=== PATIENT | male | born 1975 | race African-American/Black ===

== ENCOUNTER 2019-07-25 09:51 | Inpatient (IN) ==
[2019-07-25] MEDS ORDERED: ONDANSETRON 4 MG/2 ML VIAL IV STA (10:28)
[2019-07-25 10:56] LABS: Basophils % 0.2 % (0.0-0.8); Eosinophils % 0.1 % (0.00-10.9); Hematocrit 54.7 VOL% (42.0-52.0); Hemoglobin 19.5 GM/DL (14.0-18.0); Immature Granulocytes % 0.4 %; Immature Granulocytes Absolute 0.04 #; Lymphocytes # 1.2 10*3/uL (1.4-4.0); Lymphocytes % 10.3 % (21.2-54.2); Mean Corpuscular HGB Conc 35.6 GM/DL (32-36); Mean Corpuscular Volume 91.3 FL (87-102); Monocytes % 4.2 % (1.7-12.7); Neutrophils % 84.8 % (38.7-73.9); Platelet Count 257 T/CUMM (130-400); Red Blood Count 5.99 MC/CUMM (3.8-5.5); White Blood Count 11.1 T/CUMM (4-12)
[2019-07-25] MEDS ORDERED: SODIUM CHLORIDE 0.9% 1,000 ML IV STA (10:57)
[2019-07-25] MEDS ORDERED: HYDROmorphone 2 MG/1 ML VIAL IV STA (10:57)
[2019-07-25] MEDS ORDERED: HYDROmorphone 2 MG/1 ML VIAL ONE (10:58)
[2019-07-25 11:09] LABS: Albumin 4.1 G/DL (3.4-5.0); Bilirubin,Total 0.6 MG/DL (0.2-1.0); Calcium 9.9 MG/DL (8.5-10.1); Osmolality,Calculated 264.8 MOS/KG (273-304)
[2019-07-25] MEDS ORDERED: DEXTROSE 50% 25 GM/50 ML VIAL IV PRN (12:06)
[2019-07-25] MEDS ORDERED: GLUCAGON 1 MG VIAL IM PRN (12:06)
[2019-07-25] MEDS ORDERED: LORazepam 2 MG/1 ML VIAL IV PRN (12:17)
[2019-07-25 12:25] LABS: Apearance,Urine Slightly Hazy (Clear); Bilirubin,Urine Negative (Negative); Blood, Urine Small mg/dL (Negative); Glucose,Urine (UA) 50 mg/dL (Negative); Hyaline Casts,Urine 21 /LPF (0-3); Ketones,Urine 5 mg/dL (Negative); Mucus,Urine Many /LPF (Occasional); Nitrite,Urine Negative (Negative); Protein,Urine 100 MG/DL; RBC,Urine 1 /HPF (0-4); Urine Color Amber (Yellow); Urine Urobilinogen < 2.0 EU/DL (0.2-1.0); WBC,Urine 1 /HPF (0-6)
[2019-07-25 12:27] LABS: Barbiturates Screen,Urine Negative (Negative); Benzodiazepines Screen,Urine Negative (Negative); Cannabinoid Screen,Urine Positive (Negative); Opiate Screen,Urine Positive (Negative); Phencyclidine Screen,Urine Negative (Negative)
[2019-07-25] MEDS: MORPHINE 4 MG/1 ML VIAL IV PRN ×3 (13:08→22:44)
[2019-07-25] MEDS: SODIUM CHLORIDE 0.9% 1,000 ML IV SCH ×3 (13:08→23:50)
[2019-07-25] MEDS: ENOXAPARIN 40 MG/0.4 ML SYRINGE SUBCUT SCH (15:31)
[2019-07-25 16:08] LABS: Calcium 8.9 MG/DL (8.5-10.1); Osmolality,Calculated 269.4 MOS/KG (273-304)
[2019-07-25] MEDS: ONDANSETRON 4 MG/2 ML VIAL IV PRN ×2 (17:07→22:44)
[2019-07-26 06:02] LABS: Basophils % 0.1 % (0.0-0.8); Hematocrit 45.8 VOL% (42.0-52.0); Hemoglobin 16.5 GM/DL (14.0-18.0); Immature Granulocytes % 0.4 %; Immature Granulocytes Absolute 0.06 #; Lymphocytes # 1.2 10*3/uL (1.4-4.0); Lymphocytes % 7.1 % (21.2-54.2); Mean Platelet Volume 9.1 FL (9.6-12.0); Monocytes % 6.5 % (1.7-12.7); Neutrophils % 85.9 % (38.7-73.9); Platelet Count 178 T/CUMM (130-400); Red Blood Count 4.98 MC/CUMM (3.8-5.5); Red Cell Distribution Width 12.3 % (9.3-17.3); White Blood Count 16.1 T/CUMM (4-12)
[2019-07-26 06:38] LABS: Albumin 2.7 G/DL (3.4-5.0); Calcium 7.9 MG/DL (8.5-10.1); Osmolality,Calculated 276.7 MOS/KG (273-304); Total Protein 6.9 G/DL (6.4-8.3)
[2019-07-26] MEDS: amLODIPine 5 MG TABLET PO SCH (08:34)
[2019-07-26] MEDS: ONDANSETRON 4 MG/2 ML VIAL IV PRN ×2 (08:34→15:36)
[2019-07-26] MEDS: MORPHINE 4 MG/1 ML VIAL IV PRN ×4 (08:35→23:40)
[2019-07-26] MEDS: SODIUM CHLORIDE 0.9% 1,000 ML IV SCH ×3 (08:43→19:41)
[2019-07-26] MEDS: ENOXAPARIN 40 MG/0.4 ML SYRINGE SUBCUT SCH (12:33)
[2019-07-26] MEDS: CIPROFLOXACIN INJ 400 MG in PREMIX 1 EACH IV SCH (12:33)
[2019-07-26] MEDS ORDERED: CALCIUM GLUCONATE 2,000 MG in SODIUM CHLORIDE 0.9% 100 ML IV ONE (15:00)
[2019-07-27] MEDS: CIPROFLOXACIN INJ 400 MG in PREMIX 1 EACH IV SCH ×2 (03:42→12:40)
[2019-07-27] MEDS: MORPHINE 4 MG/1 ML VIAL IV PRN ×5 (04:32→23:41)
[2019-07-27] MEDS: SODIUM CHLORIDE 0.9% 1,000 ML IV SCH ×2 (05:00→16:05)
[2019-07-27 05:11] LABS: Basophils % 0.1 % (0.0-0.8); Eosinophils % 0.2 % (0.00-10.9); Hematocrit 41.2 VOL% (42.0-52.0); Immature Granulocytes % 0.3 %; Immature Granulocytes Absolute 0.04 #; Lymphocytes # 1.7 10*3/uL (1.4-4.0); Lymphocytes % 13.1 % (21.2-54.2); Mean Corpuscular Volume 95.4 FL (87-102); Mean Platelet Volume 9.1 FL (9.6-12.0); Monocytes % 5.9 % (1.7-12.7); Neutrophils % 80.4 % (38.7-73.9); Platelet Count 163 T/CUMM (130-400); Red Blood Count 4.32 MC/CUMM (3.8-5.5); Red Cell Distribution Width 11.9 % (9.3-17.3); White Blood Count 13.1 T/CUMM (4-12)
[2019-07-27 05:46] LABS: Calcium 8.3 MG/DL (8.5-10.1); Osmolality,Calculated 264.4 MOS/KG (273-304)
[2019-07-27] MEDS: amLODIPine 5 MG TABLET PO SCH (08:59)
[2019-07-27] MEDS: ONDANSETRON 4 MG/2 ML VIAL IV PRN ×2 (09:00→12:52)
[2019-07-27] MEDS: ENOXAPARIN 40 MG/0.4 ML SYRINGE SUBCUT SCH (12:40)
[2019-07-27] MEDS: POTASSIUM CHLORIDE RIDER 10 MEQ in PREMIX 1 EACH IV PRN ×4 (13:46→18:00)
[2019-07-28] MEDS: CIPROFLOXACIN INJ 400 MG in PREMIX 1 EACH IV SCH ×2 (01:19→11:53)
[2019-07-28] MEDS: SODIUM CHLORIDE 0.9% 1,000 ML IV SCH (05:47)
[2019-07-28] MEDS: MORPHINE 4 MG/1 ML VIAL IV PRN (06:13)
[2019-07-28 07:20] LABS: Basophils % 0.1 % (0.0-0.8); Eosinophils # 0.1 10*3/uL (0.0-0.87); Eosinophils % 0.6 % (0.00-10.9); Hematocrit 38.9 VOL% (42.0-52.0); Hemoglobin 13.8 GM/DL (14.0-18.0); Immature Granulocytes % 0.3 %; Immature Granulocytes Absolute 0.04 #; Lymphocytes # 1.7 10*3/uL (1.4-4.0); Lymphocytes % 14.7 % (21.2-54.2); Mean Corpuscular HGB Conc 35.5 GM/DL (32-36); Mean Corpuscular Volume 92.2 FL (87-102); Mean Platelet Volume 9.2 FL (9.6-12.0); Monocytes % 8.3 % (1.7-12.7); Platelet Count 171 T/CUMM (130-400); Red Blood Count 4.22 MC/CUMM (3.8-5.5); Red Cell Distribution Width 11.6 % (9.3-17.3); White Blood Count 11.6 T/CUMM (4-12)
[2019-07-28 07:49] LABS: Calcium 8.9 MG/DL (8.5-10.1); Osmolality,Calculated 258.7 MOS/KG (273-304)
[2019-07-28] MEDS: amLODIPine 5 MG TABLET PO SCH (08:39)
[2019-07-28] MEDS: ENOXAPARIN 40 MG/0.4 ML SYRINGE SUBCUT SCH (11:53)
[2019-07-28 12:41] VITALS: BP 153/86
== END 2019-07-28 15:55 | disposition home or self-care (01) | DRG 439 ==
LOC: N.ED 09:51 → SUATTDRO 12:06 → N.EDINP 12:06 → N.3E 14:09
PROVIDERS: ADMIT Internal Medicine; ATTEND Internal Medicine

== ENCOUNTER 2021-09-09 06:39 | Inpatient (IN) ==
[2021-09-09] MEDS ORDERED: SODIUM CHLORIDE 0.9% 1,000 ML IV STA ×2 (07:30→08:21)
[2021-09-09] MEDS ORDERED: ONDANSETRON 4 MG/2 ML VIAL IV STA (07:31)
[2021-09-09 07:32] LABS: Basophils % 0.3 % (0.0-0.8)
[2021-09-09 07:40] LABS: Bilirubin,Urine Small mg/dL (Negative); Blood, Urine Trace mg/dL (Negative); Glucose,Urine (UA) 500 mg/dL (Negative); Hyaline Casts,Urine 1 /LPF (0-3); Ketones,Urine 15 mg/dL (Negative); Mucus,Urine Occasional /LPF (Occasional); Nitrite,Urine Negative (Negative); Protein,Urine 30 mg/dL (Negative); RBC,Urine 2 /HPF (0-4); Urine Appearance Clear (Clear); Urine Color Yellow (Yellow); Urine Specific Gravity 1.025 (1.001-1.035); Urine Urobilinogen 0.2 eU/dL (<2.0)
[2021-09-09 07:49] LABS: Barbiturates Screen,Urine Negative (Negative); Benzodiazepines Screen,Urine Negative (Negative); Cannabinoid Screen,Urine Positive (Negative); Opiate Screen,Urine Negative (Negative); Phencyclidine Screen,Urine Negative (Negative)
[2021-09-09 07:56] LABS: Hematocrit 49.2 VOL% (42.0-52.0); Immature Granulocytes % 0.5 %; Immature Granulocytes Absolute 0.06 #; Lymphocytes # 1.8 10*3/uL (1.4-4.0); Mean Corpuscular HGB Conc 36.2 GM/DL (32-36); Mean Corpuscular Volume 91.1 FL (87-102); Mean Platelet Volume 9.8 FL (9.6-12.0); Monocytes # 0.7 10*3/uL (0.11-0.8); Monocytes % 5.7 % (1.7-12.7); Neutrophils % 77.5 % (38.7-73.9); Platelet Count 292 T/CUMM (130-400); Red Cell Distribution Width 12.9 % (9.3-17.3); White Blood Count 11.4 T/CUMM (4-12)
[2021-09-09 07:58] LABS: Hemoglobin 17.8 GM/DL (14.0-18.0)
[2021-09-09 08:03] LABS: Albumin 3.8 G/DL (3.4-5.0); Bilirubin,Total 1.7 MG/DL (0.20-1.00); Calcium 10.1 MG/DL (8.5-10.1); Osmolality,Calculated 284.2 MOS/KG (273-304); Potassium 3.8 MMOL/L (3.5-5.1); Total Protein 8.6 G/DL (6.4-8.2)
[2021-09-09] MEDS ORDERED: HYDROmorphone 1 MG/1 ML SYRINGE IV STA (08:21)
[2021-09-09] MEDS ORDERED: hydrALAZINE 20 MG/1 ML VIAL IV PRN (09:08)
[2021-09-09] MEDS ORDERED: GLUCAGON 1 MG VIAL IM PRN (09:08)
[2021-09-09] MEDS ORDERED: ALUMINUM/MAGNES/SIMETH MAX STR 30 ML UDCUP PO PRN (09:08)
[2021-09-09] MEDS ORDERED: NICOTINE 21 MG/24 HR PATCH TRANSDERM PRN (09:08)
[2021-09-09] MEDS ORDERED: DOCUSATE SODIUM 100 MG CAPSULE PO PRN (09:08)
[2021-09-09] MEDS ORDERED: ONDANSETRON 4 MG/2 ML VIAL IV PRN (09:08)
[2021-09-09] MEDS ORDERED: DEXTROSE 10% 250 ML BAG IV PRN (09:08)
[2021-09-09] MEDS ORDERED: LORazepam 2 MG/1 ML VIAL IV PRN (09:27)
[2021-09-09 10:05] LABS: Thyroid Stimulating Hormone 1.84 uIU/ml (0.358-3.74)
[2021-09-09 10:20] LABS: Hepatitis B Core IgM Quant < 0.05 Index; Hepatitis B Surface Ag Quant < 0.10 Index; Hepatitis B Surface Ag Result Non-Reactive (NonReactive); Hepatitis C Virus Ab Quant 0.06 Index; Hepatitis C Virus Ab Result Non-Reactive (NonReactive)
[2021-09-09] MEDS: ENOXAPARIN 40 MG/0.4 ML SYRINGE SUBCUT SCH (10:55)
[2021-09-09] MEDS: LACTATED RINGERS 1,000 ML IV SCH ×2 (10:55→21:58)
[2021-09-09] MEDS: THIAMINE 100 MG TABLET PO SCH (10:55)
[2021-09-09] MEDS: PANTOPRAZOLE 40 MG VIAL IV SCH (10:56)
[2021-09-09] MEDS: FOLIC ACID 1 MG TABLET PO SCH (10:56)
[2021-09-09] MEDS: INSULIN LISPRO 100 UNIT/ML SUBCUT SCH ×3 (11:47→21:00)
[2021-09-09] MEDS: MORPHINE 2 MG/1 ML SYRINGE IV PRN ×3 (12:48→21:59)
[2021-09-10] MEDS: LACTATED RINGERS 1,000 ML IV SCH ×3 (04:30→20:50)
[2021-09-10] MEDS: MORPHINE 2 MG/1 ML SYRINGE IV PRN ×5 (04:32→20:49)
[2021-09-10 05:01] LABS: Basophils % 0.4 % (0.0-0.8); Eosinophils # 0.1 10*3/uL (0.0-0.87); Eosinophils % 1.4 % (0.00-10.9); Hematocrit 41.3 VOL% (42.0-52.0); Hemoglobin 14.5 GM/DL (14.0-18.0); Immature Granulocytes % 0.4 %; Immature Granulocytes Absolute 0.03 #; Lymphocytes # 2.9 10*3/uL (1.4-4.0); Lymphocytes % 34.8 % (21.2-54.2); Mean Corpuscular HGB Conc 35.1 GM/DL (32-36); Mean Corpuscular Volume 95.6 FL (87-102); Mean Platelet Volume 9.6 FL (9.6-12.0); Monocytes # 0.6 10*3/uL (0.11-0.8); Monocytes % 7.2 % (1.7-12.7); Neutrophils % 55.8 % (38.7-73.9); Platelet Count 227 T/CUMM (130-400); Red Blood Count 4.32 MC/CUMM (3.8-5.5); Red Cell Distribution Width 13.3 % (9.3-17.3); White Blood Count 8.4 T/CUMM (4-12)
[2021-09-10 05:29] LABS: Bilirubin,Direct 0.66 MG/DL (0.0-0.20); Bilirubin,Indirect 0.7 MG/DL (0.0-1.0); Bilirubin,Total 1.4 MG/DL (0.20-1.00)
[2021-09-10 05:33] LABS: Albumin 2.8 G/DL (3.4-5.0); Bilirubin,Total 1.5 MG/DL (0.20-1.00); Calcium 9.3 MG/DL (8.5-10.1); Osmolality,Calculated 280.5 MOS/KG (273-304); Risk Ratio 3.13; Total Protein 7.1 G/DL (6.4-8.2); VLDL Cholesterol 34.6 MG/DL
[2021-09-10] MEDS: INSULIN LISPRO 100 UNIT/ML SUBCUT SCH ×4 (07:00→20:50)
[2021-09-10] MEDS: THIAMINE 100 MG TABLET PO SCH (08:26)
[2021-09-10] MEDS: FOLIC ACID 1 MG TABLET PO SCH (08:26)
[2021-09-10] MEDS: PANTOPRAZOLE 40 MG VIAL IV SCH (08:26)
[2021-09-10] MEDS: ENOXAPARIN 40 MG/0.4 ML SYRINGE SUBCUT SCH (09:16)
[2021-09-11] MEDS: MORPHINE 2 MG/1 ML SYRINGE IV PRN ×2 (01:27→10:37)
[2021-09-11] MEDS: LACTATED RINGERS 1,000 ML IV SCH ×2 (01:29→06:25)
[2021-09-11 05:33] LABS: Basophils % 0.5 % (0.0-0.8); Eosinophils # 0.1 10*3/uL (0.0-0.87); Eosinophils % 2.1 % (0.00-10.9); Hematocrit 38.4 VOL% (42.0-52.0); Hemoglobin 13.4 GM/DL (14.0-18.0); Immature Granulocytes % 0.3 %; Immature Granulocytes Absolute 0.02 #; Lymphocytes # 2.8 10*3/uL (1.4-4.0); Lymphocytes % 45.1 % (21.2-54.2); Mean Corpuscular HGB Conc 34.9 GM/DL (32-36); Mean Platelet Volume 9.8 FL (9.6-12.0); Monocytes # 0.5 10*3/uL (0.11-0.8); Monocytes % 8.3 % (1.7-12.7); Neutrophils % 43.7 % (38.7-73.9); Platelet Count 210 T/CUMM (130-400); Red Blood Count 4.04 MC/CUMM (3.8-5.5); Red Cell Distribution Width 12.5 % (9.3-17.3); White Blood Count 6.3 T/CUMM (4-12)
[2021-09-11 05:49] LABS: Albumin 2.4 G/DL (3.4-5.0); Bilirubin,Total 1.5 MG/DL (0.20-1.00); Calcium 9.1 MG/DL (8.5-10.1); Osmolality,Calculated 266.7 MOS/KG (273-304); Potassium 3.5 MMOL/L (3.5-5.1); Total Protein 6.2 G/DL (6.4-8.2)
[2021-09-11] MEDS: INSULIN LISPRO 100 UNIT/ML SUBCUT SCH (07:49)
[2021-09-11] MEDS ORDERED: LACTATED RINGERS 1,000 ML IV SCH (08:00)
[2021-09-11] MEDS: FOLIC ACID 1 MG TABLET PO SCH (08:06)
[2021-09-11] MEDS: THIAMINE 100 MG TABLET PO SCH (08:06)
[2021-09-11] MEDS: PANTOPRAZOLE 40 MG VIAL IV SCH (08:06)
[2021-09-11] MEDS ORDERED: LIDOCAINE 2% 5 ML VIAL ONE (09:15)
[2021-09-11] MEDS ORDERED: propofoL 200 MG/20 ML VIAL IV ONE (09:15)
[2021-09-11] MEDS ORDERED: PHENYLEPHRINE 1 MG/10 ML SYRINGE IV ONE (09:20)
[2021-09-11 12:33] VITALS: BP 127/81
== END 2021-09-11 13:40 | disposition home or self-care (01) | DRG 439 ==
LOC: N.ED 06:39 → SUATTDRO 09:08 → N.EDINP 09:08 → N.3E 12:45
PROVIDERS: ADMIT Internal Medicine; ATTEND Internal Medicine